=== PATIENT | female | born 1980 | race Caucasian/White ===

== ENCOUNTER 2018-03-03 12:08 | Emergency (ER) | payer BC ==
[~2018-03-03] VITALS: Ht 177.8 cm; Wt 97.5 kg
[2018-03-03 12:18] VITALS: BP 126/68
== END 2018-03-03 14:05 | disposition home or self-care (01) ==
LOC: ER 12:08
DX: S66.811A Strain of other specified muscles, fascia and tendons at wrist and hand level, right hand, initial encounter (principal); J45.909 Unspecified asthma, uncomplicated; Z88.5 Allergy status to narcotic agent; X50.9XXA Other and unspecified overexertion or strenuous movements or postures, initial encounter; Y93.89 Activity, other specified; Y99.8 Other external cause status; Y92.89 Other specified places as the place of occurrence of the external cause
CPT/HCPCS: 73130; 81025

== ENCOUNTER 2018-07-08 18:00 | Inpatient (IN) | payer BC ==
[~2018-07-08] VITALS: Ht 177.8 cm; Wt 94.1 kg
[2018-07-08] MEDS ORDERED: MORPHINE SULFATE 4 MG/ML SYR/VIAL IV ONE (18:45)
[2018-07-08] MEDS ORDERED: ONDANSETRON HCL 4 MG/2 ML VIAL IV ONE (18:45)
[2018-07-08] MEDS ORDERED: SODIUM CHLORIDE 0.9% 1,000 ML IVB ONE (18:45)
[2018-07-08] MEDS ORDERED: PANTOPRAZOLE 40 MG/10 ML VIAL IV STA (18:45)
[2018-07-08 19:19] LABS: Basophils # (auto) 0.1 uL; Hemoglobin 12.5 g/dL (12.2-16.2); Monocytes # (auto) 0.5 uL; Monocytes % (auto) 5.3 % (0.0-12.0); Red Cell Distribution Width 16.9 % (11.8-14.3)
[2018-07-08 19:21] LABS: Basophils % (auto) 0.9 % (0.0-2.0); Eosinophils # (auto) 0.4 uL; Eosinophils % (auto) 3.9 % (0.0-7.0); Hematocrit 39.4 % (36.0-46.0); Lymphocytes # (auto) 1.6 uL; Lymphocytes % (auto) 15.5 % (10.0-50.0); Mean Corpuscular Hemoglobin 24.7 pg (28.0-32.0); Mean Corpuscular Hgb Conc. 31.8 g/dL (32.0-36.0); Mean Corpuscular Volume 77.8 fL (80.0-100.0); Neutrophils # (auto) 7.5 uL; Neutrophils % (auto) 74.4 % (37.0-80.0); Platelet Count (auto) 274 10^3/uL (140-450); Red Blood Cells 5.06 10^6/uL (4.0-5.20); White Blood Cell 10.1 10^3/uL (4.4-10.8)
[2018-07-08 19:21] LABS: Urine Bacteria NONE SEEN /hpf (None Seen); Urine Blood Negative /uL (Negative); Urine Mucus FEW (None Seen); Urine Specific Gravity 1.025 (1.001-1.035); Urine WBC 1 /hpf (0 - 5)
[2018-07-08 19:36] LABS: Magnesium 2.3 mg/dL (1.6-2.6)
[2018-07-08 19:38] LABS: Albumin 3.8 g/dL (3.4-5.0); Potassium 3.9 mmol/L (3.5-5.1)
[2018-07-08 19:41] LABS: Bilirubin, Total 0.5 mg/dL (0.2-1.0); Total Protein 7.9 g/dL (6.4-8.2)
[2018-07-09] MEDS ORDERED: MORPHINE SULFATE 4 MG/ML SYR/VIAL IV ONE (00:15)
[2018-07-09] MEDS ORDERED: ONDANSETRON HCL 4 MG/2 ML VIAL IV ONE (00:15)
[2018-07-09] MEDS ORDERED: ACETAMINOPHEN 500 MG TAB PO PRN (01:15)
[2018-07-09] MEDS ORDERED: SODIUM CHLORIDE 0.9% 1,000 ML IV ONE (02:00)
[2018-07-09 02:16] VITALS: BP 124/71
[2018-07-09] MEDS ORDERED: TRAM50TA2 PO (03:40)
[2018-07-09] MEDS ORDERED: SUCR1TAB38 PO (03:40)
[2018-07-09] MEDS ORDERED: ALBU0.084 INH (03:40)
[2018-07-09] MEDS ORDERED: PANT40TA2 PO (03:40)
[2018-07-09] MEDS: MORPHINE SULFATE 4 MG/ML SYR/VIAL IV PRN ×5 (04:51→21:23)
[2018-07-09] MEDS: ONDANSETRON HCL 4 MG/2 ML VIAL IV PRN ×5 (04:51→21:30)
[2018-07-09 05:00] VITALS: BP 98/64
[2018-07-09] MEDS: SUCRALFATE 1 GM/10 ML ORAL SUSP PO SCH ×3 (06:31→17:15)
[2018-07-09 08:30] VITALS: BP 97/53
[2018-07-09 10:51] LABS: Basophils # (auto) 0 uL; Eosinophils # (auto) 0.2 uL; Eosinophils % (auto) 4.2 % (0.0-7.0); Lymphocytes # (auto) 1.6 uL; Monocytes # (auto) 0.4 uL; Nucleated Red Blood Cells % 0.1 %
[2018-07-09 10:54] LABS: Basophils % (auto) 0.9 % (0.0-2.0); Hematocrit 32.2 % (36.0-46.0); Hemoglobin 10.3 g/dL (12.2-16.2); Lymphocytes % (auto) 31.7 % (10.0-50.0); Mean Corpuscular Hemoglobin 24.4 pg (28.0-32.0); Mean Corpuscular Hgb Conc. 31.9 g/dL (32.0-36.0); Mean Corpuscular Volume 76.4 fL (80.0-100.0); Monocytes % (auto) 7.9 % (0.0-12.0); Neutrophils # (auto) 2.8 uL; Neutrophils % (auto) 55.3 % (37.0-80.0); Platelet Count (auto) 223 10^3/uL (140-450); Red Blood Cells 4.21 10^6/uL (4.0-5.20); Red Cell Distribution Width 15.9 % (11.8-14.3)
[2018-07-09] MEDS: PANTOPRAZOLE 40 MG/10 ML VIAL IV SCH ×2 (10:54→21:24)
[2018-07-09 11:06] LABS: Potassium 3.7 mmol/L (3.5-5.1)
[2018-07-09 11:11] LABS: BUN/Creatinine Ratio 10.3; Calcium 7.8 mg/dL (8.5-10.1)
[2018-07-09 12:30] VITALS: BP 98/53
[2018-07-09 14:00] LABS: Partial Thromboplastin Time 26.1 sec (23.78-33.04); Prothrombin Time 10.7 sec (9.27-12.13)
[2018-07-09 16:35] VITALS: BP 109/65
[2018-07-09 22:20] VITALS: BP 96/56
[2018-07-10 05:32] VITALS: BP 99/53
[2018-07-10 06:09] LABS: Eosinophils # (auto) 0.3 uL; Hemoglobin 10.4 g/dL (12.2-16.2); Lymphocytes # (auto) 1.8 uL; Lymphocytes % (auto) 44.1 % (10.0-50.0); Mean Corpuscular Volume 77.2 fL (80.0-100.0); Monocytes # (auto) 0.3 uL; Neutrophils # (auto) 1.6 uL; Nucleated Red Blood Cells % 0.1 %
[2018-07-10 06:12] LABS: Basophils # (auto) 0.1 uL; Basophils % (auto) 1.4 % (0.0-2.0); Eosinophils % (auto) 7.1 % (0.0-7.0); Hematocrit 32.1 % (36.0-46.0); Mean Corpuscular Hgb Conc. 32.3 g/dL (32.0-36.0); Monocytes % (auto) 7.3 % (0.0-12.0); Neutrophils % (auto) 40.1 % (37.0-80.0); Platelet Count (auto) 207 10^3/uL (140-450); Red Blood Cells 4.15 10^6/uL (4.0-5.20); Red Cell Distribution Width 16.8 % (11.8-14.3); White Blood Cell 4.1 10^3/uL (4.4-10.8)
[2018-07-10 06:25] LABS: Albumin 2.9 g/dL (3.4-5.0); Calcium 7.7 mg/dL (8.5-10.1); Potassium 3.7 mmol/L (3.5-5.1)
[2018-07-10 06:28] LABS: Bilirubin, Total 0.5 mg/dL (0.2-1.0); Total Protein 5.9 g/dL (6.4-8.2)
[2018-07-10] MEDS: SUCRALFATE 1 GM/10 ML ORAL SUSP PO SCH ×3 (06:55→19:34)
[2018-07-10] MEDS: MORPHINE SULFATE 4 MG/ML SYR/VIAL IV PRN ×4 (07:03→23:02)
[2018-07-10] MEDS: ONDANSETRON HCL 4 MG/2 ML VIAL IV PRN ×4 (07:03→23:02)
[2018-07-10 09:34] VITALS: BP 114/64
[2018-07-10] MEDS: PANTOPRAZOLE 40 MG/10 ML VIAL IV SCH ×2 (10:52→21:57)
[2018-07-10] MEDS ORDERED: LIDOCAINE VISCOUS 2% 15ML UD ONE (10:55)
[2018-07-10] MEDS ORDERED: SODIUM CHLORIDE LOCK 10 ML ONE (10:55)
[2018-07-10 13:24] VITALS: BP 96/57
[2018-07-10] MEDS: fentaNYL CITRATE 100 MCG/2 ML VL ONE ×2 (15:51→15:55)
[2018-07-10] MEDS: MIDAZOLAM HCL 5 MG/ML-1ML VIAL ONE ×3 (15:51→15:58)
[2018-07-10 17:06] VITALS: BP 114/69
[2018-07-10] MEDS ORDERED: diphenhdrAMINE HCL 50 MG/1 ML VL ONE (17:07)
[2018-07-10 21:37] VITALS: BP 104/62
[2018-07-11] MEDS: MORPHINE SULFATE 4 MG/ML SYR/VIAL IV PRN ×3 (03:14→12:46)
[2018-07-11] MEDS: ONDANSETRON HCL 4 MG/2 ML VIAL IV PRN ×3 (03:15→12:46)
[2018-07-11 05:23] VITALS: BP 109/67
[2018-07-11] MEDS: SUCRALFATE 1 GM/10 ML ORAL SUSP PO SCH ×2 (06:25→11:55)
[2018-07-11 07:34] LABS: Basophils # (auto) 0.1 uL; Basophils % (auto) 1.8 % (0.0-2.0); Eosinophils # (auto) 0.4 uL; Lymphocytes # (auto) 2.1 uL; Mean Corpuscular Volume 77.6 fL (80.0-100.0); Monocytes # (auto) 0.4 uL; Nucleated Red Blood Cells % 0.1 %
[2018-07-11 07:37] LABS: Hematocrit 35.7 % (36.0-46.0); Hemoglobin 11.1 g/dL (12.2-16.2); Lymphocytes % (auto) 39.4 % (10.0-50.0); Mean Corpuscular Hemoglobin 24.1 pg (28.0-32.0); Mean Corpuscular Hgb Conc. 31.1 g/dL (32.0-36.0); Monocytes % (auto) 8.1 % (0.0-12.0); Neutrophils # (auto) 2.3 uL; Neutrophils % (auto) 43.7 % (37.0-80.0); Platelet Count (auto) 210 10^3/uL (140-450); Red Blood Cells 4.61 10^6/uL (4.0-5.20); Red Cell Distribution Width 16.6 % (11.8-14.3); White Blood Cell 5.3 10^3/uL (4.4-10.8)
[2018-07-11 07:46] LABS: Calcium 7.7 mg/dL (8.5-10.1); Potassium 3.5 mmol/L (3.5-5.1)
[2018-07-11 07:48] LABS: BUN/Creatinine Ratio 5.1
[2018-07-11 07:50] LABS: Bilirubin, Total 0.5 mg/dL (0.2-1.0); Total Protein 6.4 g/dL (6.4-8.2)
[2018-07-11 09:00] VITALS: BP 117/69
[2018-07-11] MEDS ORDERED: SODIUM CHLORIDE 0.9% 1,000 ML IV ONE (11:00)
[2018-07-11] MEDS: PANTOPRAZOLE 40 MG/10 ML VIAL IV SCH (11:55)
== END 2018-07-11 13:30 | disposition home or self-care (01) | DRG 384 ==
LOC: ER 18:08 → OVERFLOW 18:09 → WEST WING 07-09 02:10
PROVIDERS: ADMIT Nurse Practitioner Family; ATTEND Family Medicine
PROC: 0DJ08ZZ Inspection of Upper Intestinal Tract, Via Natural or Artificial Opening Endoscopic (ICD-10-PCS; principal; 2018-07-10 15:50)
DX: K25.9 Gastric ulcer, unspecified as acute or chronic, without hemorrhage or perforation (principal); K28.9 Gastrojejunal ulcer, unspecified as acute or chronic, without hemorrhage or perforation; K80.20 Calculus of gallbladder without cholecystitis without obstruction; E86.0 Dehydration; J45.909 Unspecified asthma, uncomplicated; K21.0 Gastro-esophageal reflux disease with esophagitis; D50.0 Iron deficiency anemia secondary to blood loss (chronic); Z88.5 Allergy status to narcotic agent; Z87.11 Personal history of peptic ulcer disease; Z98.84 Bariatric surgery status
CPT/HCPCS: 36415; 43235; 74176; 80048; 80053; 81001; 81025; 82150; 83690; 83735; 84702; 85025; 85610; 85730; 86850; 86900; 86901; 96361; 96374; 96375; C9113; J2250; J2405

== ENCOUNTER 2021-05-21 20:52 | Emergency (ER) | payer BC ==
[~2021-05-21] VITALS: Ht 177.8 cm; Wt 93.0 kg
[~2021-05-21 20:52] MED LIST: ALBU0.084 INH; PANT40TA2 PO; SUCR1TAB22 PO; TRAM50TA2 PO
[2021-05-21 20:55] VITALS: BP 118/70
== END 2021-05-22 08:10 | disposition left against medical advice (07) ==
LOC: ER 20:55
DX: S61.211A Laceration without foreign body of left index finger without damage to nail, initial encounter (principal); Z53.21 Procedure and treatment not carried out due to patient leaving prior to being seen by health care provider; W26.9XXA Contact with unspecified sharp object(s), initial encounter; Y93.89 Activity, other specified; Y92.89 Other specified places as the place of occurrence of the external cause; Y99.8 Other external cause status

== ENCOUNTER 2021-05-22 08:23 | Emergency (ER) | payer BC ==
[~2021-05-22] VITALS: Ht 177.8 cm; Wt 93.0 kg
[2021-05-22] MEDS ORDERED: TETANUS-DIPTH-ACEL PERTUSSIS 0.5ML SYR Tdap IM ONE (09:15)
[2021-05-22 09:23] VITALS: BP 113/51
== END 2021-05-22 10:50 | disposition home or self-care (01) ==
LOC: ER 08:23
DX: S61.211A Laceration without foreign body of left index finger without damage to nail, initial encounter (principal); J45.909 Unspecified asthma, uncomplicated; Z88.6 Allergy status to analgesic agent; W26.0XXA Contact with knife, initial encounter; Y93.89 Activity, other specified; Y92.89 Other specified places as the place of occurrence of the external cause; Y99.8 Other external cause status
CPT/HCPCS: 12001; 90471; 90715

== ENCOUNTER 2022-08-18 12:04 | Emergency (ER) | payer BC ==
[~2022-08-18] VITALS: Ht 175.3 cm; Wt 95.0 kg
[2022-08-18 14:04] VITALS: BP 118/85
[2022-08-18] MEDS ORDERED: ACET-1080 PO (14:53)
[2022-08-18] MEDS ORDERED: AZIT500T66 PO (14:53)
== END 2022-08-18 15:04 | disposition home or self-care (01) ==
LOC: ER 12:04
DX: U07.1 COVID-19 (principal); J03.90 Acute tonsillitis, unspecified; J45.909 Unspecified asthma, uncomplicated
CPT/HCPCS: 71045